=== PATIENT | female | born 1945 | race Caucasian/White ===

== ENCOUNTER 2017-10-13 13:31 | Inpatient (IN) ==
--- NOTE | 2017-10-13 12:31 | Physician Discharge Referral ---
Home Health/Hosp Referral Info Transfer to: Home Health Attending Provider: Provider in Charge Post Discharge: PCP - Diagnosis (1) Status post reverse total replacement of left shoulder Priority: Primary Status: Acute (2) Rotator cuff arthropathy of left shoulder Priority: Primary Status: Acute (3) Atrial fibrillation Priority: Secondary Status: Chronic (4) CAD (coronary artery disease) Priority: Secondary Status: Chronic (5) COPD (chronic obstructive pulmonary disease) Priority: Secondary Status: Chronic (6) Hypertension Priority: Secondary Status: Chronic (7) Tobacco abuse Priority: Secondary Status: Chronic - Respiratory Orders Oxygen / L per min, None Smoking Cessation: Smoking cessation has been advised. For more information, call the [facility] Tobacco Quit Line at 0-228-QBQQ-NOW. - Diet/Nutrition Diet/Nutrition Orders: Regular - Activity Activity Orders: Up ad yoan, Ambulate - Services Needed Following services are medically necessary services: Nursing, Home Health Aide, Physical Therapy Home Care Orders: supplemental oxygen dependant COPD, PAF (Xarelto), CAD status post STEMI SHOULDER continuity: Opsite dressing, leave intact until first post-operative visit. Zipline/[place] in place, plan to remove at post-operative day #14-16. If dressing becomes >50% saturated, contact office, remove dressing and place appropriate dressing in its place. Do not allow for dressing to get wet. Shoulder Precautions x 6 weeks. Apply cold therapy wrap 3-6x/day for 20 minutes at a time. Encourage ambulation throughout the day. Use Incentive spirometer 10x/hour. Elevate affected extremity above heart as tolerated. NWB to affected upper extremity x 6 weeks. Will remove brace at first post-operative appointment. OK to remove during PT/ OT and Home exercises. - Transfer Medications Home Medications: Acetaminophen w/Cod 300-30 mg [Tylenol w/Codeine #3] 0.5 - 1 tab PO Q8HR PRN [History] Carvedilol [Coreg] 25 mg PO BID 09/09/15 [History] Levothyroxine Sodium [Tirosint] 100 mcg PO QAM 09/09/15 [History] hydroCHLOROthiazide [Hydrochlorothiazide] 25 mg PO DAILY 09/09/15 [History] Folic Acid 1 mg PO DAILY #30 tablet 09/10/15 [Rx] Rivaroxaban [Xarelto] 20 mg PO DAILY 12/15/15 [History] Aspirin 81 mg PO DAILY 06/06/16 [History] Cyclobenzaprine HCl 2.5 - 5 mg PO HS PRN 01/25/17 [History] Losartan Potassium [Cozaar] 25 mg PO DAILY 01/25/17 [History] Sennosides [Senokot] 2 tab PO DAILY PRN 01/25/17 [History] Albuterol Sulfate [Ventolin Hfa] 1 - 2 puff IH Q4H PRN 09/06/17 [History] Loratadine [Claritin] 10 mg PO DAILY 09/06/17 [History] Pantoprazole Sodium 40 mg PO DAILY 09/06/17 [History] Allergies/Adverse Reactions: 3 Allergy/AdvReac Type Severity Reaction Status Date / Time adhesive tape Allergy Rash Verified 05/23/17 10:44 cephalexin [From Keflex] Allergy Rash Verified 05/23/17 10:44 Iodinated Contrast- Oral and Allergy Rash Verified 05/23/17 10:44 IV Dye [Iodinated Contrast Media - IV Dye] Penicillins [PCN] Allergy Rash Verified 05/23/17 10:44 atorvastatin [From Lipitor] AdvReac Muscle Pain Verified 05/23/17 10:44 hydrocodone [From Vicodin] AdvReac Gastrointestinal Verified 05/23/17 10:44 Upset Certification: Further, I certify that my clinical findings support that this patient is homebound (i.e. absences from home require considerable and taxing effort and are for medical reasons or roman catholic services or infrequently or short duration when for other reasons) because: Homebound Reason: Post-surgery restriction and or conditions limit ability to leave home Attestation: My signature below is to certify that this patient is under my care and that I, or nurse practitioner, or a physician's baking assistant working with me, has a face-to -face encounter with this patient.
--- NOTE | 2017-10-13 12:33 | Physician Discharge Referral ---
ExtendedCare Referral Info Transfer To: [facility] Provider in Charge: Provider in Charge after Transfer: PCP Institutional Level of Care: Skilled - Diagnosis (1) Status post reverse total replacement of left shoulder Priority: Primary Status: Acute (2) Rotator cuff arthropathy of left shoulder Priority: Primary Status: Acute (3) Atrial fibrillation Priority: Secondary Status: Chronic (4) CAD (coronary artery disease) Priority: Secondary Status: Chronic (5) COPD (chronic obstructive pulmonary disease) Priority: Secondary Status: Chronic (6) Hypertension Priority: Secondary Status: Chronic (7) Tobacco abuse Priority: Secondary Status: Chronic Expected Duration of Placement: < 30 days Prognosis: Good Aware of Diagnosis: Patient Aware of Prognosis: Patient - Transfer Medications Home Medications: Acetaminophen w/Cod 300-30 mg [Tylenol w/Codeine #3] 0.5 - 1 tab PO Q8HR PRN [History] Carvedilol [Coreg] 25 mg PO BID 09/09/15 [History] Levothyroxine Sodium [Tirosint] 100 mcg PO QAM 09/09/15 [History] hydroCHLOROthiazide [Hydrochlorothiazide] 25 mg PO DAILY 09/09/15 [History] Folic Acid 1 mg PO DAILY #30 tablet 09/10/15 [Rx] Rivaroxaban [Xarelto] 20 mg PO DAILY 12/15/15 [History] Aspirin 81 mg PO DAILY 06/06/16 [History] Cyclobenzaprine HCl 2.5 - 5 mg PO HS PRN 01/25/17 [History] Losartan Potassium [Cozaar] 25 mg PO DAILY 01/25/17 [History] Sennosides [Senokot] 2 tab PO DAILY PRN 01/25/17 [History] Albuterol Sulfate [Ventolin Hfa] 1 - 2 puff IH Q4H PRN 09/06/17 [History] Loratadine [Claritin] 10 mg PO DAILY 09/06/17 [History] Pantoprazole Sodium 40 mg PO DAILY 09/06/17 [History] Allergies/Adverse Reactions: 3 Allergy/AdvReac Type Severity Reaction Status Date / Time adhesive tape Allergy Rash Verified 05/23/17 10:44 cephalexin [From Keflex] Allergy Rash Verified 05/23/17 10:44 Iodinated Contrast- Oral and Allergy Rash Verified 05/23/17 10:44 IV Dye [Iodinated Contrast Media - IV Dye] Penicillins [PCN] Allergy Rash Verified 05/23/17 10:44 atorvastatin [From Lipitor] AdvReac Muscle Pain Verified 05/23/17 10:44 hydrocodone [From Vicodin] AdvReac Gastrointestinal Verified 05/23/17 10:44 Upset - Respiratory Orders Oxygen / L per min Smoking Cessation: Smoking cessation has been advised. For more information, call the [facility] Quit Line at 6-181-NPOT-NOW. - Lab Orders Lab Orders: CBC - Mobility Orders Chair, Ambulate - Rehabiliation Orders Rehab Orders: ROM Exercises, Evaluation for Physical Therapy, Evaluation for Occupational Therapy - Treatments Skin tear care topically daily PRN per policy List/Other: supplemental oxygen dependant COPD, PAF (Xarelto), CAD status post STEMI SHOULDER continuity: Opsite dressing, leave intact until first post-operative visit. Zipline/Carisa in place, plan to remove at post-operative day #14-16. If dressing becomes >50% saturated, contact office, remove dressing and place appropriate dressing in its place. Do not allow for dressing to get wet. Shoulder Precautions x 6 weeks. Apply cold therapy wrap 3-6x/day for 20 minutes at a time. Encourage ambulation throughout the day. Use Incentive spirometer 10x/hour. Elevate affected extremity above heart as tolerated. NWB to affected upper extremity x 6 weeks. Will remove brace at first post-operative appointment. OK to remove during PT/ OT and Home exercises. CERTIFICATION: I certify that the transfer of the above named patient to an Extended Care Facility is necessary for the continuing treatment of the diagnosis listed. The above information is true and accurate reflection of patient's current condition. Confidential - Redisclosure prohibited without a patient's written consent.
--- NOTE | 2017-10-13 13:38 | History & Physical Report ---
Date of Encounter: 10/13/17 Time of Encounter: 13:38 24 Hour HP Update - Instructions Instructions: If the History and Physical is less than 30 days old and was completed prior to A.M. admission and or procedure and has NOT been updated on calendar day of procedure please complete this update prior to performing procedure. - Update Patient reports changes in Medical Condition: No Changes in examination, assessment, or condition: No Changes in Medication: No Preop tests/diagnostics Reviewed: Yes Surgery Remains Indicated: Yes Consent for Planned Operative Procedure(s) Verified: Yes - Pre-Operative Checklist Preoperative Checklist Indicated: No Prophylactic Antibiotic Ordered: Yes Is VTE Prophylaxis Indicated?: Yes
[2017-10-13] MEDS ORDERED: Albuterol 2.5 MG/3 ML NEBULIZER IH ONE (13:48)
[2017-10-13] MEDS ORDERED: Clindamycin 900 MG/50 ML 900 MG/50 ML IV.SOLN IVPB ONE (13:48)
[2017-10-13] MEDS ORDERED: Famotidine 20 MG/2 ML VIAL IVP ONE (13:49)
[2017-10-13] MEDS ORDERED: Acetaminophen IV 1,000 MG/100 ML INFUS..BTL IVPB ONE (13:49)
[2017-10-13] MEDS ORDERED: Ringers Solution, Lactated 1,000 ML IVC SCH (14:00)
--- NOTE | 2017-10-13 14:33 | Discharge Summary ---
Orders not resulted at time of discharge: Pending orders 10/13/17 08:04 Hemoglobin and Hematocrit [HEME] Routine 10/13/17 08:05 Left Shoulder Complete [XR shoulder complete LT] [XR] Routine 10/13/17 13:50 US anesthesia pain block [US] Routine Date of Encounter: 10/17/17 Time of Encounter: 06:50 - Discharge Diagnosis (1) Iron deficiency anemia Priority: Secondary Status: Chronic Qualifiers: Iron deficiency anemia type: unspecified iron deficiency Qualified Code(s) : D50.9 - Iron deficiency anemia, unspecified (2) Status post reverse total replacement of left shoulder Priority: Primary Status: Acute (3) Rotator cuff arthropathy of left shoulder Priority: Primary Status: Chronic (4) CAD (coronary artery disease) Priority: Secondary Status: Chronic Qualifiers: Coronary Disease-Associated Artery/Lesion type: [place] artery [place] vs. transplanted heart: [place] heart Associated angina: without angina Qualified Code(s): I25.10 - Atherosclerotic heart disease of [place] coronary artery without angina pectoris (5) Atrial fibrillation Priority: Secondary Status: Chronic Qualifiers: Atrial fibrillation type: chronic Qualified Code(s): I48.2 - Chronic atrial fibrillation (6) DVT prophylaxis Priority: Secondary Status: Chronic (7) COPD (chronic obstructive pulmonary disease) Priority: Secondary Status: Chronic Qualifiers: COPD type: unspecified COPD Qualified Code(s): J44.9 - Chronic obstructive pulmonary disease, unspecified (8) Tobacco abuse Priority: Secondary Status: Chronic (9) Hypertension Priority: Secondary Status: Chronic Qualifiers: Hypertension type: essential hypertension Qualified Code(s): I10 - Essential (primary) hypertension (10) Obesity (BMI 30.0-34.9) Priority: Secondary Status: Chronic - Hospital Course Hospital course: Ms. Axel Gracia is a 71 year old female Status post total shoulder replacement reverse The patient had an uneventful postoperative course. They received antibiotics and physical therapy and were discharged in stable condition. There will follow -up in the office in 2 weeks. - Time Spent with Patient Total time spent providing and/or coordinating discharge services: - Discharge Medications Home Medications: Acetaminophen w/Cod 300-30 mg [Tylenol w/Codeine #3] 0.5 - 1 tab PO Q12H PRN [History] Carvedilol [Coreg] 25 mg PO BID 09/09/15 [History] Levothyroxine Sodium [Tirosint] 100 mcg PO QAM 09/09/15 [History] Rivaroxaban [Xarelto] 20 mg PO DAILY 12/15/15 [History] Aspirin 81 mg PO DAILY 06/06/16 [History] Cyclobenzaprine HCl 2.5 - 5 mg PO HS PRN 01/25/17 [History] Losartan Potassium [Cozaar] 25 mg PO DAILY 01/25/17 [History] Albuterol Sulfate [Ventolin Hfa] 1 - 2 puff IH Q4H PRN 09/06/17 [History] Loratadine [Claritin] 10 mg PO DAILY 09/06/17 [History] Pantoprazole Sodium 40 mg PO DAILY 09/06/17 [History] Folic Acid 1 mg PO HS 10/13/17 [History] OxyCODONE Immed Rel [Roxicodone 5 MG] 5 mg PO Q4HR PRN 5 Days #20 tablet [Rx] Allergies/Adverse Reactions: 3 Allergy/AdvReac Type Severity Reaction Status Date / Time adhesive tape Allergy Rash Verified 05/23/17 10:44 cephalexin [From Keflex] Allergy Rash Verified 05/23/17 10:44 Iodinated Contrast- Oral and Allergy Rash Verified 05/23/17 10:44 IV Dye [Iodinated Contrast Media - IV Dye] Penicillins [PCN] Allergy Rash Verified 05/23/17 10:44 pentazocine [From Talwin] Allergy Rash Verified 10/13/17 13:55 potassium phosphate Allergy Rash Verified 10/13/17 13:55 atorvastatin [From Lipitor] AdvReac Muscle Pain Verified 05/23/17 10:44 hydrocodone [From Vicodin] AdvReac Gastrointestinal Verified 05/23/17 10:44 Upset rosuvastatin [From Crestor] AdvReac Muscle Pain Verified 10/13/17 13:55 Primary care physician: Janet Mcdowell DO - Patient Status Disposition: Home Health Service Condition: Good Functional capacity at discharge: independent ambulation Overall status at discharge: patient is progressing back to baseline - Discharge Instructions Follow Up With: Melinda Berger PAC [Physician Brush Polisher] - 10/20/17 2:30 pm (October 26, 2017 @ 2:30pm) Osbaldo George MD [Partnered Physician] - 11/15/17 4:30 pm Janet Mcdowell DO [Primary Care Provider] - 11/07/17 3:25 pm Julio César Bowling DO [Partnered Physician] - 05/09/18 9:00 am Additional Instructions: Discharge Instructions: Total Shoulder Please call [facility] ([phone]), your Primary Care Physician, or report to the Emergency Room if you have any of the following symptoms: Nausea, vomiting, fever greater that 101.5, swelling, chest pain, shortness of breath, increased pain/redness/drainage/odor for your incision site, numbness/ tingling, or any other concerning symptoms. ACTIVITY: Always keep your arm in the sling. Do not raise your arm away from your body. Do not use your arm to help with getting in or out of bed. No weight bearing permitted. Only perform those exercises given to you by your therapist. MEDICATIONS: Upon discharge resume your home medications. Take all the medications as prescribed. Take a stool softener if taking narcotic pain medications. Stool softeners are only effective if you drink enough fluids. Drink 6-8 glass of water or fluids a day, unless this is not allowed for another health problem. Despite using stool softeners, if you haven't had a bowel movement in 3 days, please switch to a gentle laxative. Gentle laxatives are sold over the counter. You should have a bowel movement within 24 hours, if not call the office. You will be discharged from the hospital with a prescription for pain medication. You are encouraged to decrease the use of narcotic pain medication as tolerated. Should you require a refill, please call the office. [facility] prescribes narcotic pain medication for only 4-6 weeks after surgery. If you require pain medication beyond this time period, you may be referred to your Primary Care Physician or to the Pain Clinic for further evaluation. Plan ahead for refills on pain medication as many narcotics either need to be picked up at the office or mailed. It is best to call 48-72 hours in advance of needing a prescription refill so you don't run out of medication. To help control the post-operative pain, you may take NSAIDs (Aleve,Advil, Motrin, Ibuprofen, Naprosyn) or Tylenol as prescribed on the bottle in addition to the pain medication. WOUND CARE: Leave the dressing on for 7-10 days. You may change the dressing if it becomes saturated greater than 50%. Do not get the dressing wet at anytime. Wash your hands with antibacterial soap, rinse and dry prior to any wound care. If you have joan the visiting nurse or rehab facility can remove the stapes 10-14 days after surgery and place steri-strips across the wound. Leave the steri-strips in place until they fall off on their own. You may let water from the shower run on top of the steri-strips. If you do not have a visiting nurse or rehab facility, you will need to return to the office at 10-14 days for the joan to be removed. If you have itching or redness around the dressing call the office. FOLLOW-UP: Please follow up with your surgeon in the orthopedic clinic, as scheduled
--- NOTE | 2017-10-13 14:52 | Anesthesia Evaluation PreOp ---
Date of Encounter: 10/13/17 Time of Encounter: 14:50 - Past History Planned Operation: Left Total Shoulder Cardiac History: HTN, Hyperlipidemia, Arrhythmia (Hx AFib off Xarelto 2 days), Cardiac Stent, Other (CAD) Pulmonary History: COPD [employer] History: Denies Any Significant HX Other Medical History: Thyroid Anesthesia History: No Prior Anesthetic Complications : No Alcohol Use: none Drug use: none Medications and Allergies Acetaminophen w/Cod 300-30 mg [Tylenol w/Codeine #3] 0.5 - 1 tab PO Q12H PRN [History] Carvedilol [Coreg] 25 mg PO BID 09/09/15 [History] Levothyroxine Sodium [Tirosint] 100 mcg PO QAM 09/09/15 [History] Rivaroxaban [Xarelto] 20 mg PO DAILY 12/15/15 [History] Aspirin 81 mg PO DAILY 06/06/16 [History] Cyclobenzaprine HCl 2.5 - 5 mg PO HS PRN 01/25/17 [History] Losartan Potassium [Cozaar] 25 mg PO DAILY 01/25/17 [History] Albuterol Sulfate [Ventolin Hfa] 1 - 2 puff IH Q4H PRN 09/06/17 [History] Loratadine [Claritin] 10 mg PO DAILY 09/06/17 [History] Pantoprazole Sodium 40 mg PO DAILY 09/06/17 [History] Folic Acid 1 mg PO HS 10/13/17 [History] OxyCODONE Immed Rel [Roxicodone 5 MG] 5 mg PO Q4HR PRN 5 Days #20 tablet [Rx] 3 Allergy/AdvReac Type Severity Reaction Status Date / Time adhesive tape Allergy Rash Verified 05/23/17 10:44 cephalexin [From Keflex] Allergy Rash Verified 05/23/17 10:44 Iodinated Contrast- Oral and Allergy Rash Verified 05/23/17 10:44 IV Dye [Iodinated Contrast Media - IV Dye] Penicillins [PCN] Allergy Rash Verified 05/23/17 10:44 pentazocine [From Talwin] Allergy Rash Verified 10/13/17 13:55 potassium phosphate Allergy Rash Verified 10/13/17 13:55 atorvastatin [From Lipitor] AdvReac Muscle Pain Verified 05/23/17 10:44 hydrocodone [From Vicodin] AdvReac Gastrointestinal Verified 05/23/17 10:44 Upset rosuvastatin [From Crestor] AdvReac Muscle Pain Verified 10/13/17 13:55 - Meds/Allergy Pre-op Review Medications Reviewed: Yes Allergies Reviewed: Yes Beta Blockers on Current Med List: Yes (Coreg 0900 today) Anesthesia Results - Labs Laboratory Tests 09/29/17 09/29/17 13:08 13:08 Hgb 10.7 L Hct 34.3 L Plt Count 225 Sodium 142 Potassium 3.9 BUN 7 L Creatinine 0.62 - Imaging EKG: report reviewed (SR First Degree Block) Additional studies: ECHO 2017 EF 60%, no pulm HTN Anesthesia Exam O2 Sat Height 1.73 m Height 1.73 m Height 1.73 m Weight 89.358 kg Weight 89.358 kg Weight 89.358 kg O2 Sat by Pulse Oximetry 94 O2 Sat by Pulse Oximetry 94 Vital Signs Temp Pulse Resp BP Pulse Ox 97.9 F 72 18 137/72 94 10/13/17 13:42 10/13/17 13:42 10/13/17 13:42 10/13/17 13:42 10/13/17 13:42 Height: 5'8 Weight: 197 lbs NPO (# of Hours): MN Pain Scale: 0 - HEENT Pupil (Motor): Pupils equal, EOMI Mallampati: III Denture Type: Upper: Complete Oral Opening: Less than or equal to 3 - [employer] LOC: Oriented [employer] Motor: Normal RUE, Normal LUE, Normal RLE, Normal LLE, Normal Face [employer] Sensory: Normal: RUE, LUE, RLE, LLE, Face - Cardiac Rhythm: Regular Murmur: None JVD: No Carotid Bruit: No - Pulmonary Breath Sounds: bilateral Clear Respiratory Effort: Symmetrical Anesthesia Assess/Plan ASA Score: 3 (CAD HTN COPD) Modified Mau Scale for Level of Consciousness: Cooperative, oriented, and tranquil Anesthetic Plan: General, Regional Monitoring Plan: Standard Monitors Recovery Plan: PACU (Discussed GA and RA, agrees to proceed)
[2017-10-13] MEDS ORDERED: Bupivacaine/Clonidine Syringe 1 EACH SYRINGE ONE (15:23)
[2017-10-13] MEDS ORDERED: Tetracaine/PF 20 MG/2 ML AMPUL ONE (15:23)
[2017-10-13] MEDS ORDERED: ROPIVACAINE HCL/PF 0.5% 30 ML VIAL ONE (15:23)
[2017-10-13] MEDS ORDERED: *HR* Propofol 200 MG/20 ML VIAL IVP ONE (15:25)
[2017-10-13] MEDS ORDERED: *HR* FentaNYL (PF) 100 MCG/2 ML VIAL ONE (15:25)
[2017-10-13] MEDS ORDERED: *HR* Midazolam HCl 2 MG/2 ML VIAL ONE (15:25)
[2017-10-13] MEDS ORDERED: *HR* Succinylcholine 200 MG/10 ML VIAL IVP ONE (15:28)
[2017-10-13] MEDS ORDERED: Lidocaine -MPF 2% 2 ML VIAL ONE ×2 (15:28→16:56)
[2017-10-13] MEDS ORDERED: Lidocaine -MPF 4% 5 ML AMPUL ONE (15:43)
--- NOTE | 2017-10-13 15:56 | Anesthesia Procedures ---
Date of Encounter: 10/13/17 Time of Encounter: 14:50 Procedures: Anesthesia - Nerve Block Procedure Date: 10/13/17 Time: 15:35 Pre-op Diagnosis: Left Shoulder Arthropathy Surgical Procedure: Left Total Shoulder Replacement Checklist: Correct Patient Identifier Correct side: Left Blood Thinner: No Monitor Applied: EKG, BP, Pulse Oximetry Supplemental Oxygen via Nasal Cannula (L/min): 2 Sedation: Versed (mg): 2 Sedation: Fentanyl (mcg): 100 Indication: Post Op Analgesia Pre-op Neuro Deficits: No Block Type: Supraclavicular Catheter placed: No Depth at skin (cm): 2 Sterile Technique: Yes Ultrasound used: Yes Anatomy identified: Yes Visual spread of Local: Yes Neuro Stimulation: No Blood on Needle Aspiration: No Smooth Injection of Local: Yes Pain with Injection of Local: No Prep: Chlorhexadine Needle: 22 x 50 mm Stimuplex Local: 0.25% Bupivicaine w/Clonidine 20 mcg/cc, Tetracaine (20 mg), Ropivacaine (0.5%) Volume (cc): 30 Number of Attempts: 1 Complications: None/effective block Vitals: Vital Signs/O2 Sat/Glucose, Most Current Temp Pulse Resp BP Pulse Ox 10/13/17 15:20 70 153/80 95 10/13/17 13:50 18 94 10/13/17 13:42 97.9 F 72 18 137/72 94
[2017-10-13] MEDS ORDERED: EPHEDrine 50 MG/ML VIAL ONE (16:01)
[2017-10-13] MEDS ORDERED: Ondansetron 4 MG/2 ML VIAL ONE (16:11)
[2017-10-13] MEDS ORDERED: Dexamethasone 4 MG/ML VIAL ONE (16:11)
[2017-10-13] MEDS ORDERED: *HR* Promethazine 25 MG/ML VIAL IVP PRN (16:29)
--- NOTE | 2017-10-13 16:36 | Orthopedic Operative Note ---
Date of procedure: 10/13/17 Pre-op diagnosis: Left shoulder cuff tear arthropathy Post-op diagnosis: same Procedure: Procedure: Total Shoulder Replacment Reverse, left Estimated blood loss: 100 cc Hardware: Metal and polyethylene replacement: Arthrex small glenoid baseplate, 2 4.5 screws. 1 6.5 screw, 39+4 glenosphere, 7 humeral stem, poly insert 3 and 9 Exam Under anesthesia: Full motion no instability Procedural Notes: Irreparable tear supraspinatus tendon. Operative procedure: The patient was brought to the operating room and placed on the operating room table. After general anesthesia was administered the operative shoulder was examined. Findings were noted. The patient was placed in the modified beachchair position. All pressure points were padded appropriately. And the head was stabilized in the neutral position. The operative extremity was prepped and draped in the sterile surgical fashion. The patient received IV antibiotics prior to skin incision. A standard deltopectoral approach was made to the operative shoulder. Incision was made to the skin and subcutaneous tissue,hemo stasis was obtained with Bovie cautery. Using careful blunt dissection the cephalic vein was identified and mobilized medially. The deltopectoral interval was developed and the clavipectoral fascia was incised. The subscap was released off the lesser tuberosity and tagged with #2 FiberWire suture subscap was irreparable. The humerus was dislocated patient noted to have irreparable tear supraspinatus tendon, and the humeral cut was made along the anatomic neck. Anterior and posterior Bankart retractors were placed to expose the glenoid. The glenoid guide was seated and the centering hole was made. It was reamed with the appropriate reamer. The small baseplate was seated and secured with (2) 4.5 screws and one 6.5 screw. The baseplate was irrigated and dried and the 39+4 Glenosphere was seated and secured with the Vo taper. The Vo taper was tested and found to be secure the humerus was redislocated and prepared with the diaphyseal reamers, followed by a broaching process up to the appropriate size 7 in the patient's anatomic version. The metaphyseal reamer was then utilized. Trial reduction found the shoulder to be relocatable. Trial components were removed and the 7 stem was impacted in place in the patient's anatomic version. Trial reduction found the shoulder to be relocatable and stable with the appropriate 9 metal and 3 Pamela Trial component was removed and the real implants were seated and secured the shoulder was reduced. The shoulder had excellent motion and excellent stability and no evidence of dislocation. The deep tissue was irrigated with pulse irrigation. The deltopectoral interval was closed with a running #1 PDS suture, subcutaneous tissue was irrigated and closed with 0 PDS suture, the skin was closed with skin joan. The patient was placed in a sterile dressing, abduction brace and extubated. The patient was then transferred to the recovery room in stable condition. Anesthesia: GETA Surgeon: Osbaldo George Was there an executive administrative assistant present: No Estimated blood loss (cc): 100 Condition: stable Disposition: PACU
[2017-10-13 17:34] LABS: Hematocrit 31.9 % (35.3-44.9); Hemoglobin 10.4 g/dL (11.5-15.4)
[2017-10-13] MEDS ORDERED: Ipratropium/Albuterol Neb 3 ML ONE (17:39)
[2017-10-13] MEDS ORDERED: Ipratropium/Albuterol Neb 3 ML IH ONE (17:43)
[2017-10-13] MEDS ORDERED: *HR* OxyCODONE/APAP 5/325 TABLET PO PRN (18:01)
[2017-10-13] MEDS ORDERED: Sennosides 8.6 MG TABLET PO PRN (18:01)
[2017-10-13] MEDS ORDERED: MOM Conc 10 ML UD.LIQ PO PRN (18:01)
[2017-10-13] MEDS ORDERED: *HR* OxyCODONE Immed Rel 5 MG TABLET PO PRN (18:01)
[2017-10-13] MEDS ORDERED: Temazepam 15 MG CAPSULE PO PRN (18:01)
[2017-10-13] MEDS ORDERED: traMADol 50 MG TABLET PO PRN (18:01)
[2017-10-13] MEDS ORDERED: Naloxone 0.4 MG/ML INJ IVP PRN (18:01)
[2017-10-13] MEDS ORDERED: Ondansetron 4 MG/2 ML VIAL IVP PRN (18:01)
[2017-10-13] MEDS ORDERED: Folic Acid 1 MG TABLET PO SCH (21:00)
[2017-10-13] MEDS: Ringers Solution, Lactated 1,000 ML IVC SCH (21:18)
[2017-10-13] MEDS: Clindamycin 900 MG/50 ML 900 MG/50 ML IV.SOLN IVPB SCH (23:45)
[2017-10-14 02:59] LABS: Hematocrit 33.7 % (35.3-44.9); Hemoglobin 10.5 g/dL (11.5-15.4)
[2017-10-14] MEDS: Ringers Solution, Lactated 1,000 ML IVC SCH (05:08)
[2017-10-14] MEDS ORDERED: Loratadine 10 MG TABLET PO SCH (09:00)
[2017-10-14] MEDS ORDERED: *HR* Rivaroxaban 10 MG TABLET PO SCH (09:00)
[2017-10-14] MEDS ORDERED: Aspirin 81 MG TAB.CHEW PO SCH (09:00)
[2017-10-14] MEDS: Clindamycin 900 MG/50 ML 900 MG/50 ML IV.SOLN IVPB SCH (09:24)
[2017-10-14 11:25] VITALS: BP 93/56
== END 2017-10-14 17:15 | disposition home health service (06) | DRG 483 ==
LOC: SAMDAY 13:31 → 3NENU 17:58
PROVIDERS: ADMIT Orthopaedic Surgery; ATTEND Orthopaedic Surgery

== ENCOUNTER 2019-05-30 17:27 | Inpatient (IN) ==
[2019-05-30] MEDS ORDERED: Ipratropium/Albuterol Neb 3 ML IH ONE (18:27)
[2019-05-30 18:41] LABS: Basophils % 0.3 %; Eosinophils % 0.1 %; Hematocrit 23.1 % (35.3-44.9); Hemoglobin 6.8 g/dL (11.5-15.4); Immature Granulocytes % 0.4 % (0-4); Lymphocytes # 0.3 K/mcL (0.6-4.6); Lymphocytes % 3.9 %; Mean Corpuscular HGB Conc 29.4 g/dL (31.6-35.5); Mean Corpuscular Hemoglobin 25.7 pg (28.0-33.3); Mean Corpuscular Volume 87.2 fL (83.0-100.0); Monocytes # 0.5 K/mcL (0.0-1.3); Monocytes % 6.6 %; Neutrophils # 6.6 K/mcL (1.6-8.9); Platelet Count 193 K/mcL (140-400); Red Blood Count 2.65 M/mcL (3.82-4.97); Red Cell Distribution Width 16.8 % (11.5-14.5); Segmented Neutrophils % 88.7 %; White Blood Count 7.4 K/mcL (4.3-11.1)
[2019-05-30] MEDS ORDERED: 0.9 % Sodium Chloride 1,000 ML IVC ONE (18:44)
[2019-05-30 18:57] LABS: BUN/Creatinine Ratio 14 (6-26); Blood Urea Nitrogen 12 mg/dL (8-23); Calcium 8.6 mg/dL (8.6-10.3); Carbon Dioxide 29 mEq/L (23-29); Chloride 101 mEq/L (98-107); Glucose 131 mg/dL (70-105); Osmolality,Calculated 286 (280-300); Potassium 3.4 mEq/L (3.5-5.1); Sodium 137 mEq/L (136-145); Troponin I < 0.03 ng/mL (< 0.04); eGFR For African Americans > 60 (> 60); eGFR For Non-African Americans > 60 (> 60)
[2019-05-30] MEDS ORDERED: Naloxone 0.4 MG/ML INJ IVP PRN (20:47)
[2019-05-30] MEDS ORDERED: Ringers Solution, Lactated 1,000 ML IVC SCH (21:00)
[2019-05-30] MEDS ORDERED: Potassium Chloride Elixir 20 MEQ/15 ML UDC PO ONE (21:12)
[2019-05-30] MEDS ORDERED: 0.9 % Sodium Chloride 250 ML ONE (22:32)
[2019-05-30] MEDS: Pantoprazole 40 MG VIAL IVP SCH (22:39)
[2019-05-30] MEDS: carvediloL 25 MG TABLET PO SCH (22:40)
[2019-05-30] MEDS: Folic Acid 1 MG TABLET PO SCH (22:40)
[2019-05-31 03:27] LABS: Basophils % 0.4 %; Eosinophils % 0.2 %; Hematocrit 25.3 % (35.3-44.9); Hemoglobin 7.7 g/dL (11.5-15.4); Immature Granulocytes % 0.7 % (0-4); Lymphocytes # 0.4 K/mcL (0.6-4.6); Lymphocytes % 7.7 %; Mean Corpuscular HGB Conc 30.4 g/dL (31.6-35.5); Mean Corpuscular Hemoglobin 26.5 pg (28.0-33.3); Mean Corpuscular Volume 86.9 fL (83.0-100.0); Mean Platelet Volume 9.9 fL (9.4-12.4); Monocytes # 0.5 K/mcL (0.0-1.3); Monocytes % 9.1 %; Neutrophils # 4.5 K/mcL (1.6-8.9); Platelet Count 163 K/mcL (140-400); Red Blood Count 2.91 M/mcL (3.82-4.97); Red Cell Distribution Width 16.1 % (11.5-14.5); Segmented Neutrophils % 81.9 %; White Blood Count 5.5 K/mcL (4.3-11.1)
[2019-05-31 03:38] LABS: INR 1.4
[2019-05-31 03:48] LABS: Alanine Aminotransferase 5 Units/L (7-52); Albumin 3.5 g/dL (3.5-5.7); Albumin/Globulin Ratio 1.5 (1.1-2.2); Alkaline Phosphatase 96 Units/L (34-104); Aspartate Amino Transferase 8 Units/L (13-39); BUN/Creatinine Ratio 16 (6-26); Bilirubin,Total 0.9 mg/dL (0.3-1.0); Blood Urea Nitrogen 11 mg/dL (8-23); Calcium 8.2 mg/dL (8.6-10.3); Carbon Dioxide 30 mEq/L (23-29); Chloride 104 mEq/L (98-107); Cholesterol 176 mg/dL (< 200); Globulin 2.3 g/dL (2.4-3.5); Glucose 124 mg/dL (70-105); HDL Cholesterol 44 mg/dL (40-59); LDL Cholesterol,Calculated 115 mg/dL (0-99); Magnesium 2.1 mg/dL (1.6-2.6); Osmolality,Calculated 285 (280-300); Phosphorous 3.4 mg/dL (2.7-4.5); Potassium 3.8 mEq/L (3.5-5.1); Sodium 137 mEq/L (136-145); Total Protein 5.8 g/dL (6.4-8.9); Triglycerides 83 mg/dL (< 150); eGFR For African Americans > 60 (> 60); eGFR For Non-African Americans > 60 (> 60)
[2019-05-31 04:41] LABS: Bilirubin,Urine Negative (Negative); Blood,Urine Negative (Negative); Clarity,Urine Clear (Clear); Color,Urine Yellow (Yellow); Glucose,Urine (UA) Normal (Normal); Ketones,Urine Negative (Negative); Leukocyte Esterase,Urine Negative (Negative); Nitrite,Urine Negative (Negative); Protein,Urine Negative (Neg-Trace); Urobilinogen,Urine Normal (Normal)
[2019-05-31] MEDS: Pantoprazole 40 MG VIAL IVP SCH ×2 (05:53→17:09)
[2019-05-31 08:43] LABS: Estimated Average Glucose 100 mg/dl
[2019-05-31] MEDS ORDERED: Propofol 500 MG/50 ML INFUS..BTL ONE (08:52)
[2019-05-31] MEDS ORDERED: Lidocaine -MPF 2% 2 ML VIAL ONE (08:52)
[2019-05-31] MEDS ORDERED: EPHEDrine 50 MG/ML VIAL ONE (08:53)
[2019-05-31] MEDS ORDERED: EPINEPHrine 1 MG/ML VIAL ONE (08:53)
[2019-05-31] MEDS ORDERED: Ipratropium/Albuterol Neb 3 ML IH ONE (09:44)
[2019-05-31] MEDS ORDERED: Ipratropium/Albuterol Neb 3 ML IH PRN (09:56)
[2019-05-31] MEDS: carvediloL 25 MG TABLET PO SCH ×2 (10:35→17:09)
[2019-05-31] MEDS: Sucralfate 1 GM TABLET PO SCH ×2 (10:35→20:47)
[2019-05-31] MEDS: Aspirin Enteric Coated 81 MG Tablet PO SCH (10:35)
[2019-05-31] MEDS: hydroCHLOROthiazide 25 MG TABLET PO SCH (10:36)
[2019-05-31] MEDS: FLUoxetine 20 MG CAPSULE PO SCH (10:36)
[2019-05-31 10:51] LABS: Hematocrit 28.5 % (35.3-44.9); Hemoglobin 8.8 g/dL (11.5-15.4); Mean Corpuscular HGB Conc 30.9 g/dL (31.6-35.5); Mean Corpuscular Hemoglobin 26.9 pg (28.0-33.3); Mean Corpuscular Volume 87.2 fL (83.0-100.0); Mean Platelet Volume 10.3 fL (9.4-12.4); Platelet Count 176 K/mcL (140-400); Red Blood Count 3.27 M/mcL (3.82-4.97); Red Cell Distribution Width 15.5 % (11.5-14.5); White Blood Count 10.9 K/mcL (4.3-11.1)
[2019-05-31 10:59] LABS: ABG Base Excess 4 mEq/L (-2 to 3); ABG HCO3 33 mEq/L (21-27); ABG Oxygen Saturation 95 % (95-98); ABG PCO2 72 mmHg (35-45); ABG PH 7.26 pH Units (7.32-7.45); ABG PO2 90 mmHg (85-104); ABG TCO2 35 mEq/L (20-26)
[2019-05-31 11:06] LABS: BUN/Creatinine Ratio 17 (6-26); Blood Urea Nitrogen 12 mg/dL (8-23); Calcium 8.5 mg/dL (8.6-10.3); Carbon Dioxide 31 mEq/L (23-29); Chloride 100 mEq/L (98-107); Glucose 180 mg/dL (70-105); Osmolality,Calculated 290 (280-300); Potassium 3.7 mEq/L (3.5-5.1); Sodium 138 mEq/L (136-145); eGFR For African Americans > 60 (> 60); eGFR For Non-African Americans > 60 (> 60)
[2019-05-31] MEDS: Ipratropium/Albuterol Neb 3 ML IH SCH ×4 (11:18→23:08)
[2019-05-31 14:14] LABS: Basophils % 0.2 %; Hematocrit 28.5 % (35.3-44.9); Hemoglobin 8.7 g/dL (11.5-15.4); Immature Granulocytes % 1.2 % (0-4); Lymphocytes # 0.5 K/mcL (0.6-4.6); Lymphocytes % 5.2 %; Mean Corpuscular HGB Conc 30.5 g/dL (31.6-35.5); Mean Corpuscular Hemoglobin 26.4 pg (28.0-33.3); Mean Corpuscular Volume 86.4 fL (83.0-100.0); Mean Platelet Volume 10.3 fL (9.4-12.4); Monocytes # 0.7 K/mcL (0.0-1.3); Monocytes % 6.8 %; Neutrophils # 8.7 K/mcL (1.6-8.9); Platelet Count 172 K/mcL (140-400); Red Cell Distribution Width 15.7 % (11.5-14.5); Segmented Neutrophils % 86.6 %; White Blood Count 10.1 K/mcL (4.3-11.1)
[2019-05-31 14:27] LABS: ABG Base Excess 5 mEq/L (-2 to 3); ABG HCO3 32 mEq/L (21-27); ABG Oxygen Saturation 95 % (95-98); ABG PCO2 60 mmHg (35-45); ABG PH 7.34 pH Units (7.32-7.45); ABG PO2 82 mmHg (85-104); ABG TCO2 34 mEq/L (20-26)
[2019-05-31] MEDS: Iron Sucrose Complex 200 MG in 0.9 % Sodium Chloride 100 ML IVPB SCH (14:28)
[2019-05-31] MEDS: Folic Acid 1 MG TABLET PO SCH (20:48)
[2019-06-01] MEDS: Ipratropium/Albuterol Neb 3 ML IH SCH ×6 (03:46→23:57)
[2019-06-01] MEDS: Pantoprazole 40 MG VIAL IVP SCH ×2 (05:20→18:20)
[2019-06-01 07:03] LABS: Hematocrit 27.7 % (35.3-44.9); Hemoglobin 8.2 g/dL (11.5-15.4); Mean Corpuscular HGB Conc 29.6 g/dL (31.6-35.5); Mean Corpuscular Hemoglobin 26.6 pg (28.0-33.3); Mean Corpuscular Volume 89.9 fL (83.0-100.0); Mean Platelet Volume 10.3 fL (9.4-12.4); Platelet Count 165 K/mcL (140-400); Red Blood Count 3.08 M/mcL (3.82-4.97); Red Cell Distribution Width 16.1 % (11.5-14.5); White Blood Count 5.5 K/mcL (4.3-11.1)
[2019-06-01 07:22] LABS: BUN/Creatinine Ratio 25 (6-26); Blood Urea Nitrogen 16 mg/dL (8-23); Calcium 8.7 mg/dL (8.6-10.3); Carbon Dioxide 31 mEq/L (23-29); Chloride 104 mEq/L (98-107); Glucose 103 mg/dL (70-105); Osmolality,Calculated 291 (280-300); Potassium 3.9 mEq/L (3.5-5.1); Sodium 140 mEq/L (136-145); eGFR For African Americans > 60 (> 60); eGFR For Non-African Americans > 60 (> 60)
[2019-06-01] MEDS: FLUoxetine 20 MG CAPSULE PO SCH (08:27)
[2019-06-01] MEDS: hydroCHLOROthiazide 25 MG TABLET PO SCH (08:28)
[2019-06-01] MEDS: Sucralfate 1 GM TABLET PO SCH ×2 (08:28→22:07)
[2019-06-01] MEDS: carvediloL 25 MG TABLET PO SCH ×2 (08:28→18:20)
[2019-06-01] MEDS: Aspirin Enteric Coated 81 MG Tablet PO SCH (08:28)
[2019-06-01] MEDS: Iron Sucrose Complex 200 MG in 0.9 % Sodium Chloride 100 ML IVPB SCH (08:44)
[2019-06-01] MEDS: predniSONE 20 MG TABLET PO SCH (10:02)
[2019-06-01] MEDS: Doxycycline 100 MG CAPSULE PO SCH ×2 (10:02→22:07)
[2019-06-01] MEDS: Folic Acid 1 MG TABLET PO SCH (22:07)
[2019-06-02] MEDS: Ipratropium/Albuterol Neb 3 ML IH SCH ×3 (04:02→11:36)
[2019-06-02] MEDS: Pantoprazole 40 MG VIAL IVP SCH (05:23)
[2019-06-02 06:03] LABS: Hematocrit 26.3 % (35.3-44.9); Hemoglobin 7.9 g/dL (11.5-15.4); Mean Corpuscular Hemoglobin 27.1 pg (28.0-33.3); Mean Corpuscular Volume 90.1 fL (83.0-100.0); Mean Platelet Volume 10.3 fL (9.4-12.4); Platelet Count 159 K/mcL (140-400); Red Blood Count 2.92 M/mcL (3.82-4.97); White Blood Count 3.8 K/mcL (4.3-11.1)
[2019-06-02 06:31] LABS: BUN/Creatinine Ratio 22 (6-26); Blood Urea Nitrogen 14 mg/dL (8-23); Calcium 8.8 mg/dL (8.6-10.3); Carbon Dioxide 35 mEq/L (23-29); Chloride 100 mEq/L (98-107); Glucose 115 mg/dL (70-105); Osmolality,Calculated 289 (280-300); Potassium 3.4 mEq/L (3.5-5.1); Sodium 139 mEq/L (136-145); eGFR For African Americans > 60 (> 60); eGFR For Non-African Americans > 60 (> 60)
[2019-06-02 09:00] VITALS: BP 126/74
[2019-06-02] MEDS: Sucralfate 1 GM TABLET PO SCH (09:10)
[2019-06-02] MEDS: FLUoxetine 20 MG CAPSULE PO SCH (09:10)
[2019-06-02] MEDS: Doxycycline 100 MG CAPSULE PO SCH (09:10)
[2019-06-02] MEDS: Aspirin Enteric Coated 81 MG Tablet PO SCH (09:11)
[2019-06-02] MEDS: predniSONE 20 MG TABLET PO SCH (09:11)
[2019-06-02] MEDS: carvediloL 25 MG TABLET PO SCH (09:11)
[2019-06-02] MEDS: hydroCHLOROthiazide 25 MG TABLET PO SCH (09:11)
[2019-06-02] MEDS: Iron Sucrose Complex 200 MG in 0.9 % Sodium Chloride 100 ML IVPB SCH (09:54)
[2019-06-02 10:16] LABS: Folate > 22.3 ng/mL (3.0-16.0); Vitamin B12 385 pg/mL (250-1100)
[2019-06-04 09:41] LABS: Celiac Disease Dual Antigen 4 Units (0-19)
== END 2019-06-02 13:02 | disposition home or self-care (01) | DRG 356 ==
LOC: 3BNU 17:27 → EMEROOARM 17:27 → 3BNU 19:49
PROVIDERS: ADMIT Internal Medicine; ATTEND Internal Medicine

== ENCOUNTER 2019-07-12 07:17 | Inpatient (IN) ==
[2019-07-12] MEDS ORDERED: Ondansetron 4 MG/2 ML VIAL IVP ONE (07:27)
[2019-07-12] MEDS ORDERED: 0.9 % Sodium Chloride 1,000 ML IVC ONE (07:27)
[2019-07-12] MEDS ORDERED: Hyoscyamine 0.5 MG/ML MLS IVP ONE (07:27)
[2019-07-12] MEDS ORDERED: Hyoscyamine SL 0.125 MG TAB.SUBL SL STA (08:12)
[2019-07-12 08:21] LABS: Basophils % 0.2 %; Eosinophils % 0.1 %; Hematocrit 49.6 % (35.3-44.9); Hemoglobin 15.4 g/dL (11.5-15.4); Immature Granulocytes % 0.6 % (0-4); Lymphocytes # 0.6 K/mcL (0.6-4.6); Lymphocytes % 3.9 %; Mean Corpuscular Hemoglobin 26.8 pg (28.0-33.3); Mean Corpuscular Volume 86.3 fL (83.0-100.0); Mean Platelet Volume 9.9 fL (9.4-12.4); Monocytes # 0.8 K/mcL (0.0-1.3); Monocytes % 5.3 %; Platelet Count 241 K/mcL (140-400); Red Blood Count 5.75 M/mcL (3.82-4.97); Red Cell Distribution Width 19.5 % (11.5-14.5); Segmented Neutrophils % 89.9 %; White Blood Count 14.4 K/mcL (4.3-11.1)
[2019-07-12 09:37] LABS: BUN/Creatinine Ratio 32 (6-26); Blood Urea Nitrogen 30 mg/dL (8-23); Calcium 8.6 mg/dL (8.6-10.3); Carbon Dioxide 31 mEq/L (23-29); Chloride 96 mEq/L (98-107); Glucose 133 mg/dL (70-105); Lipase 14 Units/L (11-82); Osmolality,Calculated 286 (280-300); Potassium 4.2 mEq/L (3.5-5.1); Sodium 134 mEq/L (136-145); eGFR For African Americans > 60 (> 60); eGFR For Non-African Americans 58 (> 60)
[2019-07-12 10:00] LABS: Bilirubin,Urine Small (Negative); Blood,Urine Negative (Negative); Clarity,Urine Clear (Clear); Color,Urine Dark Yellow (Yellow); Glucose,Urine (UA) Normal (Normal); Ketones,Urine Negative (Negative); Leukocyte Esterase,Urine Negative (Negative); Nitrite,Urine Negative (Negative); Protein,Urine Trace mg/dL (Neg-Trace); Specific Gravity,Urine 1.023 (1.010-1.025); Urobilinogen,Urine Normal (Normal)
[2019-07-12] MEDS ORDERED: Ketorolac 15 MG/ML VIAL IVP PRN (10:51)
[2019-07-12] MEDS ORDERED: Naloxone 0.4 MG/ML INJ IVP PRN (10:51)
[2019-07-12] MEDS ORDERED: Ondansetron 4 MG/2 ML VIAL IVP PRN (10:51)
[2019-07-12] MEDS: 0.9 % Sodium Chloride 1,000 ML IVC SCH ×2 (11:24→22:20)
[2019-07-13 03:41] LABS: Basophils % 0.1 %; Eosinophils % 0.1 %; Hematocrit 39.5 % (35.3-44.9); Immature Granulocytes % 0.4 % (0-4); Lymphocytes # 0.4 K/mcL (0.6-4.6); Lymphocytes % 5.7 %; Mean Corpuscular HGB Conc 30.6 g/dL (31.6-35.5); Mean Corpuscular Hemoglobin 26.5 pg (28.0-33.3); Mean Corpuscular Volume 86.6 fL (83.0-100.0); Mean Platelet Volume 9.8 fL (9.4-12.4); Monocytes # 0.4 K/mcL (0.0-1.3); Platelet Count 177 K/mcL (140-400); Red Blood Count 4.56 M/mcL (3.82-4.97); Red Cell Distribution Width 18.7 % (11.5-14.5); Segmented Neutrophils % 87.7 %
[2019-07-13 03:44] LABS: Hemoglobin 12.1 g/dL (11.5-15.4); Neutrophils # 5.9 K/mcL (1.6-8.9); White Blood Count 6.7 K/mcL (4.3-11.1)
[2019-07-13 03:55] LABS: BUN/Creatinine Ratio 52 (6-26); Blood Urea Nitrogen 29 mg/dL (8-23); Calcium 7.8 mg/dL (8.6-10.3); Carbon Dioxide 25 mEq/L (23-29); Chloride 105 mEq/L (98-107); Glucose 87 mg/dL (70-105); Magnesium 1.9 mg/dL (1.6-2.6); Osmolality,Calculated 289 (280-300); Phosphorous 3.5 mg/dL (2.7-4.5); Potassium 3.4 mEq/L (3.5-5.1); Sodium 137 mEq/L (136-145); eGFR For African Americans > 60 (> 60); eGFR For Non-African Americans > 60 (> 60)
[2019-07-13] MEDS ORDERED: Potassium Effervescent 25 MEQ TABLET.EFF PO ONE (14:58)
[2019-07-13] MEDS: carvediloL 25 MG TABLET PO SCH (16:10)
[2019-07-13] MEDS: Sucralfate 1 GM TABLET PO SCH (16:10)
[2019-07-13] MEDS: Folic Acid 1 MG TABLET PO SCH (20:46)
[2019-07-14] MEDS: carvediloL 25 MG TABLET PO SCH ×2 (08:19→16:37)
[2019-07-14] MEDS: FLUoxetine 20 MG CAPSULE PO SCH (08:19)
[2019-07-14] MEDS: Sucralfate 1 GM TABLET PO SCH ×2 (08:19→16:37)
[2019-07-14] MEDS: Aspirin Enteric Coated 81 MG Tablet PO SCH (08:19)
[2019-07-14] MEDS: Folic Acid 1 MG TABLET PO SCH (22:17)
[2019-07-15 05:30] LABS: Basophils % 0.3 %; Eosinophils % 0.6 %; Hematocrit 33.5 % (35.3-44.9); Immature Granulocytes % 1.5 % (0-4); Lymphocytes # 0.3 K/mcL (0.6-4.6); Mean Corpuscular Hemoglobin 27.6 pg (28.0-33.3); Mean Corpuscular Volume 88.9 fL (83.0-100.0); Monocytes # 0.3 K/mcL (0.0-1.3); Monocytes % 8.2 %; Neutrophils # 2.7 K/mcL (1.6-8.9); Platelet Count 142 K/mcL (140-400); Red Blood Count 3.77 M/mcL (3.82-4.97); Red Cell Distribution Width 17.9 % (11.5-14.5); Segmented Neutrophils % 79.4 %; White Blood Count 3.4 K/mcL (4.3-11.1)
[2019-07-15 05:36] LABS: Hemoglobin 10.4 g/dL (11.5-15.4)
[2019-07-15 06:26] LABS: BUN/Creatinine Ratio 18 (6-26); Blood Urea Nitrogen 11 mg/dL (8-23); Calcium 7.9 mg/dL (8.6-10.3); Carbon Dioxide 32 mEq/L (23-29); Chloride 102 mEq/L (98-107); Glucose 114 mg/dL (70-105); Osmolality,Calculated 280 (280-300); Potassium 3.9 mEq/L (3.5-5.1); Sodium 135 mEq/L (136-145); eGFR For African Americans > 60 (> 60); eGFR For Non-African Americans > 60 (> 60)
[2019-07-15] MEDS: Sucralfate 1 GM TABLET PO SCH (07:46)
[2019-07-15] MEDS: carvediloL 25 MG TABLET PO SCH (07:46)
[2019-07-15] MEDS: Aspirin Enteric Coated 81 MG Tablet PO SCH (09:21)
[2019-07-15] MEDS: FLUoxetine 20 MG CAPSULE PO SCH (09:21)
[2019-07-15 10:46] VITALS: BP 126/72
== END 2019-07-15 15:34 | disposition home or self-care (01) | DRG 389 ==
LOC: EMEROOARM 07:17 → 2ANU 07:17 → SUATTDRO 10:11 → 2ANU 10:41
PROVIDERS: ADMIT Internal Medicine; ATTEND Internal Medicine

== ENCOUNTER 2020-10-03 21:16 | Inpatient (IN) ==
[2020-10-03] MEDS ORDERED: Azithromycin 500 MG in D5% in Water 250 ML IVPB ONE (21:34)
[2020-10-03] MEDS ORDERED: methylPREDNISolone 125 MG/2 ML VIAL IVP ONE (21:34)
[2020-10-03 21:46] LABS: Basophils % 0.3 %; Eosinophils # 0.2 K/mcL (0.0-0.6); Eosinophils % 1.5 %; Hematocrit 51.3 % (35.3-44.9); Immature Granulocytes % 0.4 % (0-4); Lymphocytes # 2.2 K/mcL (0.6-4.6); Mean Corpuscular HGB Conc 32.2 g/dL (31.6-35.5); Mean Corpuscular Hemoglobin 29.3 pg (28.0-33.3); Mean Corpuscular Volume 91.1 fL (83.0-100.0); Mean Platelet Volume 9.8 fL (9.4-12.4); Monocytes % 8.9 %; Platelet Count 299 K/mcL (140-400); Red Blood Count 5.63 M/mcL (3.82-4.97); Red Cell Distribution Width 14.5 % (11.5-14.5); Segmented Neutrophils % 69.9 %; White Blood Count 11.4 K/mcL (4.3-11.1)
[2020-10-03 21:48] LABS: Hemoglobin 16.5 g/dL (11.5-15.4)
[2020-10-03 21:59] LABS: VBG HCO3 40 mEq/L (21-27); VBG PCO2 76 mmHg (41-51); VBG PH 7.33 pH Units (7.32-7.42); VBG PO2 49 mmHg (25-50)
[2020-10-03 22:12] LABS: BUN/Creatinine Ratio 20 (6-26); Blood Urea Nitrogen 13 mg/dL (8-23); Calcium 9.4 mg/dL (8.6-10.3); Carbon Dioxide 38 mEq/L (23-29); Chloride 94 mEq/L (98-107); Glucose 112 mg/dL (70-105); Osmolality,Calculated 289 (280-300); Potassium 3.5 mEq/L (3.5-5.1); Sodium 139 mEq/L (136-145); Troponin I 0.03 ng/mL (< 0.04); eGFR For African Americans > 60 (> 60); eGFR For Non-African Americans > 60 (> 60)
[2020-10-03 23:26] LABS: Adenovirus Not Detected (Not Detect); Bordetella Pertussis Not Detected (Not Detect); Chlamydophila pneumoniae Not Detected (Not Detect); Coronavirus 229E Not Detected (Not Detect); Coronavirus HKU1 Not Detected (Not Detect); Coronavirus NL63 Not Detected (Not Detect); Coronavirus OC43 Not Detected (Not Detect); Human Metapneumovirus Not Detected (Not Detect); Human Rhinovirus/Enterovirus DETECTED (Not Detect); Influenza A Subtype 2009 H1 Not Detected (Not Detect); Influenza B Not Detected (Not Detect); Mycoplasma pneumoniae Not Detected (Not Detect); Parainfluenza Virus 1 Not Detected (Not Detect); Parainfluenza Virus 2 Not Detected (Not Detect); Parainfluenza Virus 3 Not Detected (Not Detect); Parainfluenza Virus 4 Not Detected (Not Detect); Respiratory Syncytial Virus Not Detected (Not Detect); SARS-CoV-2 Not Detected (Not Detect)
[2020-10-04] MEDS ORDERED: Naloxone 0.4 MG/ML INJ IVP PRN (00:47)
[2020-10-04] MEDS ORDERED: Acetaminophen 325 MG TABLET PO PRN (00:47)
[2020-10-04] MEDS ORDERED: Ondansetron ODT 4 MG TAB.RAPDIS SL PRN (00:47)
[2020-10-04] MEDS ORDERED: Melatonin 3 MG TABLET PO PRN (00:47)
[2020-10-04] MEDS ORDERED: Albuterol 2.5 MG/3 ML NEBULIZER IH PRN (00:48)
[2020-10-04] MEDS ORDERED: Nitroglycerin 0.4 MG TAB.SUBL SL PRN (01:05)
[2020-10-04 02:12] LABS: Hematocrit 49.7 % (35.3-44.9); Hemoglobin 15.4 g/dL (11.5-15.4); Mean Corpuscular Hemoglobin 28.6 pg (28.0-33.3); Mean Corpuscular Volume 92.4 fL (83.0-100.0); Mean Platelet Volume 10.6 fL (9.4-12.4); Platelet Count 260 K/mcL (140-400); Red Blood Count 5.38 M/mcL (3.82-4.97); Red Cell Distribution Width 14.6 % (11.5-14.5)
[2020-10-04 02:32] LABS: BUN/Creatinine Ratio 27 (6-26); Blood Urea Nitrogen 16 mg/dL (8-23); Calcium 9.2 mg/dL (8.6-10.3); Carbon Dioxide 34 mEq/L (23-29); Chloride 95 mEq/L (98-107); Glucose 121 mg/dL (70-105); Osmolality,Calculated 286 (280-300); Potassium 3.9 mEq/L (3.5-5.1); Sodium 137 mEq/L (136-145); eGFR For African Americans > 60 (> 60); eGFR For Non-African Americans > 60 (> 60)
[2020-10-04] MEDS: Ipratropium/Albuterol Neb 3 ML IH SCH ×5 (03:54→22:06)
[2020-10-04] MEDS ORDERED: Ipratropium/Albuterol Neb 3 ML IH SCH (05:00)
[2020-10-04] MEDS: *HR* Enoxaparin 40 MG/0.4 ML SYRINGE SQ SCH (05:51)
[2020-10-04] MEDS: Azithromycin 250 MG TABLET PO SCH (08:58)
[2020-10-04] MEDS: Isosorbide MONOnitrate (24 HR) 30 MG TAB.ER.24H PO SCH (08:58)
[2020-10-04] MEDS: carvediloL 25 MG TABLET PO SCH ×2 (08:58→17:15)
[2020-10-04] MEDS: FLUoxetine 20 MG CAPSULE PO SCH (08:58)
[2020-10-04] MEDS: hydroCHLOROthiazide 25 MG TABLET PO SCH (08:59)
[2020-10-04] MEDS ORDERED: Aspirin Enteric Coated 81 MG Tablet PO SCH (09:00)
[2020-10-04] MEDS: MethylPREDNISolone 40 MG/ML VIAL IVP SCH ×3 (09:01→23:28)
[2020-10-05] MEDS: Ipratropium/Albuterol Neb 3 ML IH SCH ×4 (03:52→23:57)
[2020-10-05] MEDS: *HR* Enoxaparin 40 MG/0.4 ML SYRINGE SQ SCH (05:18)
[2020-10-05 06:06] LABS: Hematocrit 41.9 % (35.3-44.9); Mean Corpuscular HGB Conc 32.5 g/dL (31.6-35.5); Mean Corpuscular Hemoglobin 28.9 pg (28.0-33.3); Mean Platelet Volume 10.4 fL (9.4-12.4); Platelet Count 276 K/mcL (140-400); Red Blood Count 4.71 M/mcL (3.82-4.97); Red Cell Distribution Width 14.4 % (11.5-14.5); White Blood Count 15.2 K/mcL (4.3-11.1)
[2020-10-05 06:08] LABS: Hemoglobin 13.6 g/dL (11.5-15.4)
[2020-10-05 06:38] LABS: BUN/Creatinine Ratio 42 (6-26); Blood Urea Nitrogen 42 mg/dL (8-23); Calcium 8.9 mg/dL (8.6-10.3); Carbon Dioxide 33 mEq/L (23-29); Chloride 96 mEq/L (98-107); Glucose 147 mg/dL (70-105); Osmolality,Calculated 297 (280-300); Potassium 3.5 mEq/L (3.5-5.1); Sodium 137 mEq/L (136-145); eGFR For African Americans > 60 (> 60); eGFR For Non-African Americans 55 (> 60)
[2020-10-05] MEDS: Azithromycin 250 MG TABLET PO SCH (09:17)
[2020-10-05] MEDS: Aspirin 325 MG TABLET PO SCH (09:17)
[2020-10-05] MEDS: MethylPREDNISolone 40 MG/ML VIAL IVP SCH ×2 (09:17→17:29)
[2020-10-05] MEDS: hydroCHLOROthiazide 25 MG TABLET PO SCH (09:17)
[2020-10-05] MEDS: carvediloL 25 MG TABLET PO SCH ×2 (09:18→17:29)
[2020-10-05] MEDS: Isosorbide MONOnitrate (24 HR) 30 MG TAB.ER.24H PO SCH (09:18)
[2020-10-05] MEDS: FLUoxetine 20 MG CAPSULE PO SCH (09:18)
[2020-10-06] MEDS: Ipratropium/Albuterol Neb 3 ML IH SCH ×2 (04:02→10:55)
[2020-10-06] MEDS: MethylPREDNISolone 40 MG/ML VIAL IVP SCH (05:05)
[2020-10-06] MEDS: *HR* Enoxaparin 40 MG/0.4 ML SYRINGE SQ SCH (05:06)
[2020-10-06 06:09] LABS: Basophils % 0.1 %; Hematocrit 39.8 % (35.3-44.9); Hemoglobin 12.8 g/dL (11.5-15.4); Immature Granulocytes % 0.6 % (0-4); Lymphocytes # 0.8 K/mcL (0.6-4.6); Lymphocytes % 4.1 %; Mean Corpuscular HGB Conc 32.2 g/dL (31.6-35.5); Mean Corpuscular Hemoglobin 28.8 pg (28.0-33.3); Mean Corpuscular Volume 89.6 fL (83.0-100.0); Mean Platelet Volume 10.3 fL (9.4-12.4); Monocytes # 0.5 K/mcL (0.0-1.3); Monocytes % 2.5 %; Neutrophils # 18.5 K/mcL (1.6-8.9); Platelet Count 242 K/mcL (140-400); Red Blood Count 4.44 M/mcL (3.82-4.97); Red Cell Distribution Width 14.6 % (11.5-14.5); Segmented Neutrophils % 92.7 %
[2020-10-06 06:45] LABS: BUN/Creatinine Ratio 48 (6-26); Blood Urea Nitrogen 51 mg/dL (8-23); Calcium 8.7 mg/dL (8.6-10.3); Carbon Dioxide 32 mEq/L (23-29); Chloride 97 mEq/L (98-107); Glucose 122 mg/dL (70-105); Magnesium 2.2 mg/dL (1.6-2.6); Osmolality,Calculated 297 (280-300); Phosphorous 3.7 mg/dL (2.7-4.5); Potassium 3.4 mEq/L (3.5-5.1); Sodium 136 mEq/L (136-145); eGFR For African Americans > 60 (> 60); eGFR For Non-African Americans 51 (> 60)
[2020-10-06] MEDS: FLUoxetine 20 MG CAPSULE PO SCH (09:29)
[2020-10-06] MEDS: carvediloL 25 MG TABLET PO SCH (09:30)
[2020-10-06] MEDS: hydroCHLOROthiazide 25 MG TABLET PO SCH (09:30)
[2020-10-06] MEDS: Aspirin 325 MG TABLET PO SCH (09:30)
[2020-10-06] MEDS: Azithromycin 250 MG TABLET PO SCH (09:30)
[2020-10-06] MEDS: Isosorbide MONOnitrate (24 HR) 30 MG TAB.ER.24H PO SCH (09:30)
[2020-10-06 12:17] VITALS: BP 112/64
== END 2020-10-06 14:59 | disposition home or self-care (01) | DRG 190 ==
LOC: 3BNU 21:16 → EMEROOARM 21:16 → SUATTDRO 23:30 → 3BNU 23:53 → SUATTDRO 10-04 14:27
PROVIDERS: ADMIT Internal Medicine; ATTEND Internal Medicine

== ENCOUNTER 2021-02-22 00:42 | Inpatient (IN) ==
[2021-02-22] MEDS ORDERED: *HR* Ticagrelor 90 MG TABLET PO ONE (00:50)
[2021-02-22] MEDS ORDERED: *HR* Heparin 5,000 UNIT/ML VIAL IVP ONE (00:51)
[2021-02-22] MEDS ORDERED: 0.9 % Sodium Chloride 1,000 ML ONE ×2 (00:54→01:17)
[2021-02-22 00:58] LABS: Basophils % 0.5 %; Eosinophils # 0.2 K/mcL (0.0-0.6); Eosinophils % 2.3 %; Hematocrit 37.1 % (35.3-44.9); Hemoglobin 11.7 g/dL (11.5-15.4); Immature Granulocytes % 0.3 % (0-4); Lymphocytes % 23.4 %; Mean Corpuscular HGB Conc 31.5 g/dL (31.6-35.5); Mean Corpuscular Volume 88.8 fL (83.0-100.0); Mean Platelet Volume 11.1 fL (9.4-12.4); Neutrophils # 5.4 K/mcL (1.6-8.9); Platelet Count 202 K/mcL (140-400); Red Blood Count 4.18 M/mcL (3.82-4.97); Red Cell Distribution Width 14.8 % (11.5-14.5); Segmented Neutrophils % 62.5 %; White Blood Count 8.7 K/mcL (4.3-11.1)
[2021-02-22] MEDS ORDERED: *HR* FentaNYL (PF) 100 MCG/2 ML VIAL IVP ONE (00:58)
[2021-02-22 01:06] LABS: Prothrombin Time 11.2 Seconds (9.4-12.1)
[2021-02-22 01:15] LABS: BUN/Creatinine Ratio 15 (6-26); Blood Urea Nitrogen 14 mg/dL (8-23); Carbon Dioxide 28 mEq/L (23-29); Chloride 105 mEq/L (98-107); Glucose 113 mg/dL (70-105); Magnesium 1.8 mg/dL (1.6-2.6); Osmolality,Calculated 289 (280-300); Potassium 4.1 mEq/L (3.5-5.1); Sodium 139 mEq/L (136-145); eGFR For African Americans > 60 (> 60); eGFR For Non-African Americans 57 (> 60)
[2021-02-22] MEDS ORDERED: ISOVUE-370 200 ML INFUS..BTL ONE ×2 (01:17→01:26)
[2021-02-22] MEDS ORDERED: *HR* Heparin 10,000 UNIT/10 ML VIAL ONE (01:17)
[2021-02-22] MEDS ORDERED: Heparin 1,000 UNITS/500 mL 500 ML ONE (01:17)
[2021-02-22] MEDS ORDERED: Nitroglycerin 1,000 MCG/5 ML VIAL IV ONE (01:17)
[2021-02-22 01:18] LABS: Troponin I 0.14 ng/mL (< 0.04)
[2021-02-22] MEDS ORDERED: *HR* FentaNYL (PF) 100 MCG/2 ML VIAL ONE (01:40)
[2021-02-22] MEDS ORDERED: *HR* Midazolam HCl 2 MG/2 ML VIAL ONE (01:40)
[2021-02-22] MEDS ORDERED: *HR* Atropine Sulfate 1 MG/10 ML SYRINGE ONE (01:43)
[2021-02-22] MEDS ORDERED: Perflutren Lipid Microsphere 1.3 ML in 0.9 % Sodium Chloride 8.7 ML IVP PRN (02:42)
[2021-02-22] MEDS ORDERED: Ondansetron 4 MG/2 ML VIAL IVP PRN (02:42)
[2021-02-22] MEDS: Aspirin 81 MG TAB.CHEW PO SCH (08:52)
[2021-02-22] MEDS: *HR* Ticagrelor 90 MG TABLET PO SCH ×2 (08:53→21:36)
[2021-02-22] MEDS ORDERED: Furosemide 20 MG/2 ML VIAL IVP ONE (10:37)
[2021-02-22] MEDS ORDERED: Ipratropium/Albuterol Neb 3 ML IH PRN (11:09)
[2021-02-22] MEDS: carvediloL 25 MG TABLET PO SCH ×2 (12:28→21:36)
[2021-02-22] MEDS: *HR* Enoxaparin 40 MG/0.4 ML SYRINGE SQ SCH (12:28)
[2021-02-22] MEDS ORDERED: (Ezetimibe 10 MG Tablet) PO SCH (13:00)
[2021-02-22] MEDS: Azithromycin 500 MG in 0.9 % Sodium Chloride 250 ML IVPB SCH (15:26)
[2021-02-23] MEDS: *HR* Enoxaparin 40 MG/0.4 ML SYRINGE SQ SCH (05:46)
[2021-02-23] MEDS: *HR* Ticagrelor 90 MG TABLET PO SCH ×2 (08:21→22:16)
[2021-02-23] MEDS: carvediloL 25 MG TABLET PO SCH ×2 (08:21→22:16)
[2021-02-23] MEDS: FLUoxetine 20 MG CAPSULE PO SCH (08:21)
[2021-02-23] MEDS: Aspirin 81 MG TAB.CHEW PO SCH (08:21)
[2021-02-23] MEDS: Patient Taking Own Medication 1 EACH PO SCH (08:22)
[2021-02-23] MEDS ORDERED: Furosemide 40 MG/4 ML VIAL IVP ONE (11:42)
[2021-02-23] MEDS: Azithromycin 500 MG in 0.9 % Sodium Chloride 250 ML IVPB SCH (12:39)
[2021-02-23] MEDS: Ipratropium/Albuterol Neb 3 ML IH SCH ×3 (15:45→23:58)
[2021-02-24] MEDS: Ipratropium/Albuterol Neb 3 ML IH SCH ×2 (04:15→07:18)
[2021-02-24] MEDS: *HR* Enoxaparin 40 MG/0.4 ML SYRINGE SQ SCH (06:16)
[2021-02-24 06:57] VITALS: BP 107/76; PULSE 65; TEMP 97.7
[2021-02-24] MEDS ORDERED: hydroCHLOROthiazide 25 MG TABLET PO SCH (09:00)
[2021-02-24 09:23] VITALS: O2SAT 97
[2021-02-24] MEDS ORDERED: Azithromycin 250 MG TABLET PO SCH (09:30)
[2021-02-24] MEDS ORDERED: Furosemide 20 MG TABLET PO PRN (09:31)
[2021-02-24] MEDS: *HR* Ticagrelor 90 MG TABLET PO SCH (09:52)
[2021-02-24] MEDS: FLUoxetine 20 MG CAPSULE PO SCH (09:53)
[2021-02-24] MEDS: carvediloL 25 MG TABLET PO SCH (09:53)
[2021-02-24] MEDS: Patient Taking Own Medication 1 EACH PO SCH (09:53)
[2021-02-24] MEDS: Aspirin 81 MG TAB.CHEW PO SCH (09:53)
[2021-02-24 10:06] LABS: BUN/Creatinine Ratio 22 (6-26); Blood Urea Nitrogen 19 mg/dL (8-23); Calcium 9.4 mg/dL (8.6-10.3); Carbon Dioxide 29 mEq/L (23-29); Chloride 103 mEq/L (98-107); Glucose 131 mg/dL (70-105); Osmolality,Calculated 292 (280-300); Potassium 3.2 mEq/L (3.5-5.1); Sodium 139 mEq/L (136-145); eGFR For African Americans > 60 (> 60); eGFR For Non-African Americans > 60 (> 60)
[2021-02-24] MEDS ORDERED: FLU Vac QV 21-22 (6Month+)/PF 0.5 ML SYRINGE IM ONE (10:24)
== END 2021-02-24 11:04 | disposition home or self-care (01) | DRG 247 ==
LOC: EMEROOARM 00:42 → 2NNU 01:02 → SUATTDRO 01:59 → 2NNU 01:59 → 2NENU 02-23 13:06
PROVIDERS: ADMIT Internal Medicine Interventional Cardiology; ATTEND Internal Medicine